=== PATIENT | female | born 1965 | race Caucasian/White ===

== ENCOUNTER 2017-06-13 10:01 | Emergency (ER) | payer OTHER ==
[~2017-06-13] VITALS: Ht 177.8 cm; Wt 70.0 kg
[~2017-06-13 10:01] MED LIST: HYDR-3366 PO; ROPI.25 PO; TOPI25 PO; VESI5TAB2 PO; ZOLO25TA PO
[2017-06-13 10:02] VITALS: BP 130/80; PULSE 87; RESP 16; TEMP 98.7; O2SAT 98
--- NOTE | 2017-06-13 10:38 | PD ---
HPI Chief Complaint: Oral / Dental Pain or Problem Time Seen by Provider: 10:27 Travel History International Travel<30 days: No Contact w/Intl Traveler<30days: No Traveled to known affect area: No History of Present Illness HPI 52-year-old female presents to the emergency department for left upper tooth pain for 1 day. States that this was a gradual onset over the day and has had worsening pain that radiates in the ear region and neck throughout the night. States the pain is moderate. States she does have pain with opening the mouth. Patient has not tried ughk-sze-fgggjcp medications. Denies abnormal taste or exudate from the gumline. Denies dysphasia or drooling. Patient has not seen a dentist in 20 years. She has not followed up with her primary care physician regarding this problem. Patient has fever, chills, chest pain, shortness of breath. PFSH Past Medical History Depression: Yes Cancer: Yes (CERVICAL CA) Migraines: Yes ?: Not Menopausal: Yes : 4 Para: 5 Past Surgical History Hysterectomy: Yes Social History Alcohol Use: Yes Tobacco Use: Yes Substance Use: No Allergies-Medications (Allergen,Severity, Reaction): Coded Allergies: acetaminophen (Unverified Allergy, Intermediate, Rash, 03/15/17) hydrocodone (Unverified Allergy, Intermediate, Rash, 03/15/17) Reported Meds & Prescriptions Reported Meds & Active Scripts Active Magic Mouthwash Pediatric/Adult Liq (Lidocaine/Diphenhydr/Alum/Mg/Simeth) 60 Ml Susp 5 Ml SWISH-SWAL ACHS Each 5mL contains: Diphenydramine 4.5mg, Viscous Lidocaine 2% 10mg, Maalox Advanced Regular Strength 2.7ml Tramadol (Tramadol HCl) 50 Mg Tab 50 Mg PO Q8H PRN 5 Days Clindamycin (Clindamycin HCl) 300 Mg Cap 300 Mg PO Q6H 7 Days [place] (Hydrocodone-Acetaminophen) 10-325 Mg Tab 1 Tab PO Q6H PRN Reported Topamax (Topiramate) 25 Mg Tab Unknown Dose PO BID Vesicare (Solifenacin) 5 Mg Tab Unknown Dose PO DAILY Requip (Ropinirole HCl) 0.25 Mg Tab Unknown Dose PO BID Zoloft (Sertraline HCl) 25 Mg Tab Unknown Dose PO DAILY Review of Systems Except as stated in HPI: all other systems reviewed are Neg Physical Exam Narrative GENERAL: Well-nourished, well-developed patient. SKIN: Focused skin assessment warm/dry. HEAD: Normocephalic. MOUTH: Mucous membranes moist, no lesions, tongue appears normal. TTP to left buccal and lingual aspect of gingiva. no exudate or fluctuance. Tonsils without erythema, injection, or hypertrophy. TTP to left preauricular lymph nodes. Left mandibular angle area appears slightly edematous. EYES: No scleral icterus. No injection or drainage. NECK: Supple, trachea midline. Left anterior cervical lymphadenopathy. CARDIOVASCULAR: Regular rate and rhythm without murmurs, gallops, or rubs. RESPIRATORY: Breath sounds equal bilaterally. No accessory muscle use. MUSCULOSKELETAL: No cyanosis, or edema. BACK: Nontender without obvious deformity. No CVA tenderness. Data Data Last Documented VS Vital Signs Date Time Temp Pulse Resp B/P (MAP) Pulse Ox O2 Delivery O2 Flow Rate FiO2 06/13/17 11:20 06/13/17 10:37 18 06/13/17 10:02 98.7 87 98 Orders Orders Tramadol (Ultram) (06/13/17 10:45) Clindamycin (Cleocin) (06/13/17 10:45) Ed Discharge Order (06/13/17 11:06) [facility] Medical Decision Making Medical Screen Exam Complete: Yes Emergency Medical Condition: Yes Differential Diagnosis Tooth abscess versus dental infection versus pulpitis Narrative Course 52-year-old female presents to the emergency department for left upper tooth pain for 1 day. States that this was a gradual onset over the day and has had worsening pain that radiates in the ear region and neck throughout the night. States the pain is moderate. States she does have pain with opening the mouth. Patient has not tried yoae-fxe-olokqqi medications. Denies abnormal taste or exudate from the gumline. Denies dysphasia or drooling. Patient has not seen a dentist in 20 years. She has not followed up with her primary care physician regarding this problem. Patient has fever, chills, chest pain, shortness of breath. Vital signs stable Physical exam consistent with a dental infection. No obvious area of fluctuance or expression of fluid. No pharyngeal or tonsillar pillar involvement. Patient prescribed clindamycin, Magic mouthwash, and tramadol. Strongly advised patient to follow up with dentist within 2 days. Advised patient to return to emergency department if symptoms persist or worsen. Diagnosis Primary Impression: Dental infection Referrals: [facility] Dentist Primary Care Physician Additional Instructions: Take medication as prescribed Follow-up with the dentist within 2 days Return to the emergency department if worsening or persistent symptoms Scripts Wwefzxzychvbczv-Irhpptsgz-Eyg-Alum-Simeth Liq (Magic Mouthwash Pediatric/Adult Liq) 60 Ml Susp 5 ML SWISH-SWAL ACHS for Mouth sores, #60 ML 0 Refills Each 5mL contains: Diphenydramine 4.5mg, Viscous Lidocaine 2% 10mg, Maalox Advanced Regular Strength 2.7ml Prov: Ronald Laguerre MD 06/13/17 Tramadol (Tramadol) 50 Mg Tab 50 MG PO Q8H Y for PAIN for 5 Days, #12 TAB 0 Refills Prov: Ronald Laguerre MD 06/13/17 Clindamycin (Clindamycin) 300 Mg Cap 300 MG PO Q6H for Infection for 7 Days, #28 CAP 0 Refills Prov: Ronald Laguerre MD 06/13/17 Disposition: 01 DISCHARGE HOME Condition: Stable Mary Parker Jun 13, 2017 10:38
[2017-06-13] MEDS ORDERED: CLINDAMYCIN 150 MG CAP PO ONE (10:45)
[2017-06-13] MEDS ORDERED: TRAM50TA PO (10:45)
[2017-06-13] MEDS ORDERED: CLIN300C5 PO (10:45)
[2017-06-13] MEDS ORDERED: traMADol HCL 50 MG TAB PO ONE (10:45)
[2017-06-13] MEDS ORDERED: MAGICPED SWISH-SWAL (10:49)
== END 2017-06-13 11:20 | disposition home or self-care (01) ==
LOC: NEPD 10:01
DX: K04.7 Periapical abscess without sinus (principal); R07.9 Chest pain, unspecified; R50.9 Fever, unspecified; R06.02 Shortness of breath
CPT/HCPCS: 99284